=== PATIENT | male | born 1980 | race Caucasian/White ===

== ENCOUNTER → 2017-07-15 | Outpatient (CLI) | payer BC, OTHER ==
[~2017-07-15] MED LIST: TESTOSTERONE CYPIONATE 200 MG/ML 1ML VIAL IM ONE
[2017-07-15 11:10] VITALS: BP 141/90
[2017-07-15 12:15] VITALS: BP 138/83
== END | disposition home or self-care (01) ==
LOC: CHF HDHVI 11:05
PROVIDERS: ATTEND Internal Medicine Cardiovascular Disease
DX: I11.0 Hypertensive heart disease with heart failure (principal); I50.9 Heart failure, unspecified; E29.1 Testicular hypofunction
CPT/HCPCS: 93005; 96372; G0463; J1071